=== PATIENT | male | born 1940 | race Caucasian/White ===

== ENCOUNTER → 2019-06-04 10:14 | Outpatient (CLI) | payer MEDICARE, SELFPAY ==
[2019-06-04 12:23] LABS: Hemoglobin A1C% w Est Avg Glu 8.2 % (4.0-6.0)
== END ==
PROVIDERS: PCP Internal Medicine; Referring Provider Internal Medicine; Visit Provider Internal Medicine
DX: E11.9 Type 2 diabetes mellitus without complications (principal)
CPT/HCPCS: 36415; 83036

== ENCOUNTER → 2019-10-17 09:33 | Outpatient (CLI) | payer MEDICARE, SELFPAY ==
[2019-10-17 10:53] LABS: Hemoglobin A1C% w Est Avg Glu 8.1 % (4.0-6.0)
[2019-10-17 11:16] LABS: Alanine Aminotransferase 23 IU/L (<50); Albumin Globulin Ratio 1.8 (1.0-2.8); Alkaline Phosphatase 80 U/L (38-126); Aspartate Aminotransferase 23 IU/L (17-59); BUN Creatinine Ratio 31.3 (6-22); Blood Urea Nitrogen 25 mg/dL (9-20); Calcium 9.2 mg/dL (8.4-10.2); Carbon Dioxide 29 mmol/L (22-32); Chloride 103 mmol/L (98-107); Cholesterol 83 mg/dL (140-199); Estimated Glomerular Filt Rate > 60.0 mL/min (>60); Globulin 2.2 g/dL (1.7-4.1); Glucose 140 mg/dL (80-110); HDL Cholesterol 27 mg/dL (40-60); HEMOLYSIS < 15 (0-50); LDL Cholesterol Calculated 37 mg/dL (<100); Potassium 4.7 mmol/L (3.4-5.1); Sodium 137 mmol/L (137-145); Total Protein 6.2 g/dL (6.3-8.2); Triglycerides 93 mg/dL (35-150)
[2019-10-18 07:58] LABS: PSA Free % 37.1 % (.); PSA, Total 0.7 ng/mL (0.0-4.0)
== END ==
PROVIDERS: PCP Internal Medicine; Referring Provider Internal Medicine; Visit Provider Internal Medicine
DX: I10 Essential (primary) hypertension (principal); E78.5 Hyperlipidemia, unspecified; Z12.5 Encounter for screening for malignant neoplasm of prostate; E11.9 Type 2 diabetes mellitus without complications
CPT/HCPCS: 36415; 80053; 80061; 83036; 84153; 84154

== ENCOUNTER → 2020-03-17 13:23 | Outpatient (CLI) | payer MEDICARE, SELFPAY ==
[2020-03-17] MEDS: COVID-19 VACC #1, MRNA(MOD) 100 MCG/0.5 ML VIAL IM (14:05)
== END ==
PROVIDERS: PCP Internal Medicine; Visit Provider Internal Medicine
DX: Z23 Encounter for immunization (principal)
CPT/HCPCS: 0011A; 91301

== ENCOUNTER → 2020-04-14 13:08 | Outpatient (CLI) | payer MEDICARE, SELFPAY ==
[2020-04-14] MEDS: COVID-19 VACC #2, MRNA(MOD) 100 MCG/0.5 ML VIAL IM (13:15)
== END ==
PROVIDERS: PCP Internal Medicine; Visit Provider Internal Medicine
DX: Z23 Encounter for immunization (principal)
CPT/HCPCS: 0012A; 91301

== ENCOUNTER → 2024-07-29 11:16 | Outpatient (CLI) | payer MEDICARE, SELFPAY ==
--- NOTE | 2024-07-29 11:30 | DI.RAD.S_ITS ---
PROCEDURE: XR KNEE STANDING BI INDICATIONS: BILATERAL KNEE PAIN TECHNIQUE: AP view of both knee(s) COMPARISON: None. FINDINGS: Bones: There are no osseous abnormalities. 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 . Dictated by: João Javed M.D. on 07/30/2024 at 9:50 Approved by: João Javed M.D. on 07/30/2024 at 9:51
== END ==
PROVIDERS: PCP Physician Assistant; Referring Provider Physician Assistant; Visit Provider Physician Assistant
DX: G89.29 Other chronic pain (principal); M25.561 Pain in right knee; M25.562 Pain in left knee
CPT/HCPCS: 73565

== ENCOUNTER → 2024-12-04 07:44 | Outpatient (CLI) | payer MEDICARE, SELFPAY ==
--- NOTE | 2024-12-04 07:46 | DI.RAD.S_ITS ---
PROCEDURE: XR RIBS RT 2V INDICATIONS: Other fall from one level to another, initial encounter TECHNIQUE: 2 views of the ribs were acquired. COMPARISON: None. FINDINGS: Surgical changes and devices: None. Bones and chest wall: Acute mildly displaced fracture lateral right 9th rib. Calcifications seen in the expected location of the coracoacromial ligament likely related to old trauma. There is also calcification in the mid right rotator cuff most compatible with calcific tendinitis . Lungs and pleura: The visualized lung appears clear. No pleural effusions or pneumothorax are visible. IMPRESSION: Minimally displaced fracture lateral right 9th rib. Other chronic findings as described Dictated by: João Javed M.D. on 12/04/2024 at 13:20 Approved by: João Javed M.D. on 12/04/2024 at 13:21
--- NOTE | 2024-12-04 07:46 | DI.RAD.S_ITS ---
PROCEDURE: XR SHOULDER RT MIN 2V INDICATIONS: Other fall from one level to another, initial encounter TECHNIQUE: Three views of the shoulder were acquired. COMPARISON: None. FINDINGS: Bones: Mild acromial deformity is likely a malunified old fracture Acromioclavicular and glenohumeral joints: Mild degeneration acromioclavicular and glenohumeral joints. Soft tissues: Mild calcification rotator cuff insertion suggest calcific tendinitis IMPRESSION: Chronic findings . No acute posttraumatic change Dictated by: João Javed M.D. on 12/04/2024 at 13:21 Approved by: João Javed M.D. on 12/04/2024 at 13:23
== END ==
LOC: RAD 07:45
PROVIDERS: PCP Physician Assistant; Referring Provider Physician Assistant; Visit Provider Physician Assistant
DX: S22.31XA Fracture of one rib, right side, initial encounter for closed fracture (principal); M19.011 Primary osteoarthritis, right shoulder; M21.921 Unspecified acquired deformity of right upper arm; M25.511 Pain in right shoulder; R07.89 Other chest pain; W17.89XA Other fall from one level to another, initial encounter
CPT/HCPCS: 71100; 73030

== ENCOUNTER → 2024-12-11 08:35 | Outpatient (CLI) | payer MEDICARE, SELFPAY ==
--- NOTE | 2024-12-11 08:36 | DI.MRI.S_ITS ---
PROCEDURE: MR SHOULDER RT WO CON INDICATIONS: right shoulder pain TECHNIQUE: Noncontrast oblique coronal T2 fast spin echo with fat saturation, oblique sagittal T1 spin echo and T2 fast spin echo with fat saturation, axial T1 spin echo and T2 fast spin echo with fat saturation through the shoulder. COMPARISON: None. FINDINGS: Image quality: Excellent. Some images are limited by patient motion and other artifacts. Rotator cuff: Full-thickness tear with up to 2.5 cm myotendinous retraction of the mid and distal supraspinatus as well as heterogeneous signal, thickening and areas of thinning of the proximal supraspinatus, tendinopathy with partial tears. Tendinopathy and partial tear of the distal subscapularis anteriorly without significant myotendinous retraction. Increased T2 weighted signal and thickening of the distal subscapularis, tendinopathy without definitive tear. Teres minor is normal. Mild muscular fatty atrophy of supraspinatus and to a lesser degree superior aspect of infraspinatus. Bones and bursae: Moderate degenerative changes of the acromioclavicular joint with joint space narrowing, osteophytes, subchondral edema, capsular hypertrophy. Type 2 laterally downsloping acromion in combination with the osteophytes and capsular hypertrophy causes decreased sub acromial space and may be a cause of impingement measuring 5 mm at its narrowest. Associated moderate increased subacromial/subdeltoid bursal fluid. Moderate glenohumeral joint effusion. Fluid in the biceps tendon sheath may be physiologic amount although mild tenosynovitis could have a similar appearance. Mild increased T2 weighted signal and areas of thickening as well as thinning of the biceps anchor suggest tendinopathy without definitive tear and no retraction. Nonspecific edema adjacent to the proximal humeral diaphysis medially may be related to capsular or periosteal inflammation or other cause. [id number] degenerative changes of the glenohumeral joint with diffuse cartilage thinning but without definitive labral tear. IMPRESSION: Full-thickness tear with retraction of the supraspinatus as discussed above. Tendinopathy and partial tear of the distal infraspinatus and tendinopathy of the distal subscapularis. Moderate degenerative changes acromioclavicular joint as discussed above. Mild degenerative changes glenohumeral joint. Other findings as above. Follow-up is needed Dictated by: Dajuan Escudero M.D. on 12/11/2024 at 15:33 Approved by: Dajuan Escudero M.D. on 12/11/2024 at 15:46
== END ==
LOC: MRI 08:35
PROVIDERS: PCP Physician Assistant; Referring Provider Physician Assistant; Visit Provider Physician Assistant
DX: S46.011A Strain of muscle(s) and tendon(s) of the rotator cuff of right shoulder, initial encounter (principal); M25.511 Pain in right shoulder; W17.89XA Other fall from one level to another, initial encounter
CPT/HCPCS: 73221

== ENCOUNTER 2024-12-30 06:13 | Day surgery (SDC) | payer MEDICARE, SELFPAY ==
[2024-12-22 15:00] VITALS: BMI 25.8
--- NOTE | 2024-12-29 13:17 | EKG_ITS ---
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
[2024-12-30] VITALS (9 sets, daily range): BP systolic 106–149; BP diastolic 58–88; PULSE 71–103; RESP 16–918; TEMP 36.3–36.6; O2SAT 93–97
--- NOTE | 2024-12-30 06:56 | PM.PREOP ---
Pre-operative Note Interval Note History & Physical reviewed/Exam performed by Physician: Yes Changes to H&P: No
[2024-12-30] MEDS: LACTATED RINGERS 1,000 ML 42 ML IV ×2 (07:01→09:27)
[2024-12-30] MEDS: ACETAMINOPHEN 325 MG TABLET 975 MG PO (07:03)
[2024-12-30 07:05] LABS: Add Manual Diff / Slide Review NO; Hematocrit 41.8 % (41-53); Hemoglobin 14.1 g/dL (13.5-17.5); Lymphocytes Absolute Auto 900 /uL (1100-4500); Mean Corpuscular HGB Conc 33.8 % (30-36); Mean Corpuscular Hemoglobin 29.9 PG (26-34); Mean Corpuscular Volume 88.2 fL (80-100); Platelet Count 171 X10^3/uL (150-400)
[2024-12-30 07:12] LABS: Blood Urea Nitrogen 24 mg/dL (9-20); Carbon Dioxide 24 mmol/L (22-32); Chloride 105 mmol/L (98-107); Potassium 4.4 mmol/L (3.4-5.1); Sodium 139 mmol/L (137-145)
[2024-12-30 07:13] LABS: Calcium 9.0 mg/dL (8.4-10.2); Estimated Glomerular Filt Rate > 60 mL/min (>60); Glucose 204 mg/dL (70-99); HEMOLYSIS 100 (0-50)
[2024-12-30] MEDS: INSULIN REGULAR 100 UNIT/ML 3 ML VIAL IV ×2 (07:46→10:58)
--- NOTE | 2024-12-30 07:56 | SUR.PREOP ---
Block start time [0742] . Monitoring initiated and maintained throughout procedure. Oxygen and medications given per anesthesiologist instructions. Patient remained stable throughout procedure, no adverse reactions noted. Block end time [0752].
--- NOTE | 2024-12-30 08:41 | SUR.OPER ---
Addendum entered by Rianna Altman RN 12/30/24 09:35: Trimano shoulder positioner in place on operative arm side. Original Note: Beach chair. Lower body on padded OR bed. Head in foam padded head cradle, secured with straps. Non-operative arm secured <90 degrees abduction, gel pad under elbow. Pillow under knees. Safety belt at thigh. Cloth tape over blanket over lower legs. Surgeon approved final position prior to start of procedure.
[2024-12-30] MEDS: SODIUM CHLORIDE IRRIG SOLUTION 3,000 ML, EPINEPHrine 3 MG IRR (10:30)
--- NOTE | 2024-12-30 11:55 | PM.OP.1 ---
Operative Date/Time/Diagnoses Date of procedure: 12/30/24 Time of procedure: 07:45 Pre-op diagnosis: RIGHT shoulder rotator cuff tear and possible SLAP tear. Post-op diagnosis: same Procedure & Clinicians Procedure: Right shoulder arthroscopy, rotator cuff repair, acromioplasty and open proximal biceps tendon tenodesis Same procedure(s) as scheduled: Yes Surgeon: Dajuan Parada Assisted?: Yes Branch Operations Coordinator: Nellie Muse Anesthesia Type: General Operative Notes Findings: Complete supraspinatus tear which was retracted to approximately the AC joint. Downsloping acromion that appeared to be impinging on the rotator cuff at the site of tear, degenerative SLAP and biceps tears. Closure Type: primary Specimen(s): none sent Applied: none Estimated Blood Loss (mL): 25 Blood products transfused: none Procedure in detail: Patient Name: LILLI PARTIDA Date of Operation: 12/30/24 Preoperative diagnosis: Right Shoulder Rotator Cuff Tear, Biceps Tendinopathy Procedure performed: Right Shoulder Diagnostic Arthroscopy, Rotator Cuff Repair, Open Biceps Tenodesis and acromioplasty Postoperative diagnosis: Same Primary Surgeon: Dajuan Parada MD Secondary Surgeon: FELIZ Bull Physician Branch Operations Coordinator was used throughout the entirety of the case. They assisted with room set up, patient positioning, draping, retraction, reduction, fixation and closure. They were essential for the success of the case. Anesthesia: General EBL: 25 ml Implants: Arthrex SpeedBridge Double Row (FiberTak Speedbridge) Arthrex Proximal Biceps Tenodesis Button Indication for Surgery: Nonoperative management failed to resolve symptoms. The risks, benefits, and alternatives were discussed. Risks included pain, bleeding, infection, damage to nearby structures, lack of symptom relief, implant complications, stiffness, need for further surgeries, DVT, PE, stroke, and even . They signed a written consent form. Examination Under Anesthesia: ROM: Forward flexion 170, abduction 170 Anterior load and shift: Grade 1 Posterior load and shift: Grade 1 Inferior sulcus: Grade 1 Diagnostic Findings: Rotator interval: Normal Biceps tendon & SLAP: Degenerative biceps fraying and unstable posterior SLAP tear Subscapularis: Intact Rotator Cuff: Full-thickness supraspinatus tear that is retracted to the AC joint. HAGL: No HAGL Labrum: Intact Glenoid Cartilage: Intact Humeral Head Cartilage: Grade 2 and 3 chondromalacia Procedure in Detail: The patient was met in the preoperative holding on the day of the procedure. Operative extremity was signed. Consent was verified. The patient desired to proceed. Regional anesthesia was obtained in the preoperative area. They were brought to the operating room and surrendered to anesthesia. Once general anesthesia was obtained they were placed in the beach chair position. All bony prominences were well-padded. They were then prepped and draped in the standard sterile fashion. A surgical timeout was held to confirm the patient procedure, identity, laterality, allergies, images, and antibiotics. All were in agreement and we proceeded. A standard diagnostic arthroscopy was performed utilizing posterior and anterior superior portal sites. The anterior superior portal site was created under direct visualization. The findings of the diagnostic arthroscopy can be found above. Upon examination of the rotator cuff, it was very clear that there was a full-thickness rotator cuff tear I was easily able to visualize the acromial space from inside the joint.. Biceps tendon was cut using arthroscopic scissors and debrided back with a sucker shaver. Mini-Open Subpectoral Biceps Tenodesis: We then turned our attention to the biceps tenodesis, a 4 cm longitudinal incision was made near the axillary fold centered over the inferior border of the pectoralis major tendon. Electrocautery was used to obtain hemostasis. The fascia was opened with dissection scissors in line with the course of the neurovascular structures. Blunt digital dissection was used to identify the intertubercular groove just under the pectoralis major tendon. The long head of the biceps tendon was visualized within this interval. The short head of the biceps was retracted with my finger and the right angle was used to deliver the tendon of the long head of the biceps out of the wound. The groove was then prepared with a archer elevator. The drill for the biceps button was placed at the inferior edge of the pec major tendon within the groove. The drill was then removed and the button placed. The tendon was then reduced down on to the surface of the humerus. The suture limbs were cut and the wound was irrigated. The subcutaneous tissue was closed using interrupted 2-0 Vicryl followed by running 3-0 Monocryl in subcuticular fashion. Subacromial Decompression: The obturator was placed into the subacromial space along the underside of the acromion from the posterior portal passing lateral to the coracoacromial ligament and out the anterior incision. The crystal cannula was threaded over this and the serfas wand was placed into the cannula. The camera was inserted and the cannula was backed out until the camera and instruments were in the subacromial space. The serfas wand was used to excise tissue from the underside of the acromion and establish a small space for viewing. The leading edge of the CA ligament was released. A lateral incision was made after localization with a spinal needle. The shaver was inserted and the bursa was excised completely, taking care to excise all bursa from the anterior and lateral gutters. The rotator cuff was protected throughout. The rotator cuff was probed and found to be intact. The shaver was then used to corina the underside of the acromion of all portions that were downsloping or not smooth. The shoulder was taken through a range of motion and the bursa was found to be fully excised. Rotator Cuff Repair: The rotator cuff tear was identified from the subacromial space. It was decided that this would require a Speedbridge fixation with both a medial and lateral row. The frayed edges of the rotator cuff were debrided back. The new footprint was debrided of soft tissue. The anterior fiberrtak was paced anteriorly just lateral to the edge of the cartilage. Given the size of the rotator cuff tear we elected to have 3 fiber tacks used. Sutures were then pulled out of the shoulder. A scorpion was used to pass the sutures through the medial aspect of the rotator cuff. One limb from each medial swivel lock was preloaded into another swivel lock anchor eyelet. Using a punch, two lateral bone sockets were prepared approximately 5-10 mm lateral to the edge of the tuberosity. The swivel locks were then inserted into the lateral bone sockets while applying tension to the Fibertape which reduced and compressed the torn rotator cuff to the bone. It was then identified that 1 of the limbs of the posterior fiber tack suture had cut through the rotator cuff. At that point we then tied those 2 ends together. This left a small dog-ear and we utilized the free suture that was in the posterolateral portal to throw an additional throw posteriorly. This brought down the posterior dog ear and the footprint was covered with the rotator cuff. The shoulder was taken through a range of motion which demonstrated a fully repair rotator cuff which moved continuously with the movement of the shoulder. Final images were obtained and the instruments were removed from the shoulder. The incisions were closed with 3-0 Nylon for the portals and 3-0 Monocryl for the biceps incision, sterile dressing and sling were applied. Postoperative Plan: Same day discharge Sling use for 6 weeks Physical Therapy consult placed Follow up with ortho in 2 weeks for suture removal and clinical examination Dajuan Parada MD Complications: none Post-operative Condition: stable Disposition: PACU
--- NOTE | 2024-12-30 12:11 | SUR.PHASEI ---
Report given to JUAN Pat
[2024-12-30] MEDS: ONDANSETRON 4 MG/2 ML INJ IV (12:59)
--- NOTE | 2024-12-30 13:08 | SUR.PHASEII ---
Gave report to Jeri Bentley RN while RN at lunch.
--- NOTE | 2024-12-30 13:48 | SUR.PHASEII ---
patient is sleeping and states he wants to keep resting for a while.
== END 2024-12-30 14:36 | disposition home or self-care (01) ==
LOC: OR 06:14
PROVIDERS: Student in an Organized Health Care Education/Training Program; PCP Physician Assistant; Referring Provider Orthopaedic Surgery; Visit Provider Orthopaedic Surgery
PROC: (CPT 29827; principal; 2024-12-30 07:45)
DX: S46.011A Strain of muscle(s) and tendon(s) of the rotator cuff of right shoulder, initial encounter (principal); S46.211A Strain of muscle, fascia and tendon of other parts of biceps, right arm, initial encounter; S43.431A Superior glenoid labrum lesion of right shoulder, initial encounter; M94.211 Chondromalacia, right shoulder; M19.011 Primary osteoarthritis, right shoulder; G89.18 Other acute postprocedural pain; I10 Essential (primary) hypertension; E78.5 Hyperlipidemia, unspecified; K21.9 Gastro-esophageal reflux disease without esophagitis; E11.9 Type 2 diabetes mellitus without complications; W17.89XA Other fall from one level to another, initial encounter; Z79.84 Long term (current) use of oral hypoglycemic drugs
CPT/HCPCS: 23430; 29827; 29826; 36415; 64450; 80048; 82962; 85025; 93005; C1713; J0165; J0330; J0689; J2405; J2704; J2765; J3010; J7120